=== PATIENT | male | born 1960 | race Caucasian/White ===

== ENCOUNTER 2021-06-25 18:49 | Emergency (ER) | payer MEDICAID ==
[~2021-06-25] VITALS: Ht 180.3 cm; Wt 95.5 kg
[~2021-06-25 18:49] MED LIST: HYDR-4383 PO; LEVO100T PO; OMEG10007 PO; QUET25TA PO; SIMV-45 PO
[2021-06-25 18:58] VITALS: BP 140/83
== END 2021-06-25 19:11 ==
LOC: ER 18:50
DX: S40.812A Abrasion of left upper arm, initial encounter (principal); F10.929 Alcohol use, unspecified with intoxication, unspecified; V87.7XXA Person injured in collision between other specified motor vehicles (traffic), initial encounter; Y93.89 Activity, other specified; Y92.89 Other specified places as the place of occurrence of the external cause; Y99.8 Other external cause status; Y90.9 Presence of alcohol in blood, level not specified; Z02.89 Encounter for other administrative examinations
CPT/HCPCS: 99283

== ENCOUNTER 2023-01-28 06:59 | Day surgery (SDC) | payer MEDICAID ==
[2023-01-24 16:21] LABS: BASOPHILS % (AUTO) 0.4 % (0-1); EOSINOPHILS # (AUTO) 0.1 X10'3 (0-0.9); LYMPHOCYTES % (AUTO) 22.8 % (21-51); MEAN CORPUSCULAR HEMOGLOBIN 29.6 PG (27.0-31.0); MEAN CORPUSCULAR HGB CONC 33.5 g/dL (33.0-36.5); MEAN CORPUSCULAR VOLUME 88.2 FL (78-98); MEAN PLATELET VOLUME 9.4 FL (7.4-10.4); MONOCYTES # (AUTO) 0.5 X10'3 (0-0.9); MONOCYTES % (AUTO) 12.3 % (2-12); NEUTROPHILS # (AUTO) 2.7 X10'3 (1.8-7.7); NEUTROPHILS % (AUTO) 62.5 % (42-75); PRE OP HEMATOCRIT 38.2 % (42.0-52.0); PRE OP HEMOGLOBIN 12.8 g/dL (14.0-17.9); PRE OP PLATELET COUNT 177 X10'3 (140-440); RED BLOOD COUNT 4.33 X10'6 (4.70-6.10); RED CELL DISTRIBUTION WIDTH 13.3 % (11.5-14.5)
[2023-01-24 16:30] LABS: ALBUMIN 3.9 G/DL (3.4-5.0); ALBUMIN/GLOBULIN RATIO 1.2 (1.1-1.5); ALKALINE PHOSPHATASE 55 IU/L (46-116); BLOOD UREA NITROGEN 17 MG/DL (7-18); BUN/CREATININE RATIO 21.8 (5.4-32.0); CALCIUM 10.1 MG/DL (8.5-10.1); CHLORIDE 104 MMOL/L (99-107); CREATININE 0.78 MG/DL (0.60-1.10); PRE OP ALT 20 U/L (30-65); PRE OP ANION GAP 8 (8-16); PRE OP AST 26 U/L (10-37); PRE OP BILIRUB, TOTAL 0.4 MG/DL (0.0-1.0); PRE OP GLUCOSE 138 MG/DL (70-104); PRE OP POTASSIUM 3.9 MMOL/L (3.4-5.1); PRE OP SODIUM 139 MMOL/L (135-145); TOTAL PROTEIN 7.2 G/DL (6.4-8.2); eGFR > 90 ML/MIN
[~2023-01-28] VITALS: Ht 180.3 cm; Wt 96.2 kg
[2023-01-28] VITALS (7 sets, daily range): BP systolic 121–134; BP diastolic 68–81
[~2023-01-28 06:59] MED LIST changes: +BUPIVAcaine 0.5% inj/PF 30 ML ONE; +ESCI20TA39 PO; +FENO200C22 PO; +GABA300C PO; -HYDR-4383 PO; +HYDR25TA5 PO; -LEVO100T PO; +LEVO75TA PO; -QUET25TA PO; +ROSU40TA22 PO; -SIMV-45 PO; +ceFAZolin inj. 2,000 MG in dextrose 5%-water 100 ML IV ONE; +famotidine 20mg tablet PO ONE; +ringers solution, lacted 1,000 ML IV SCH
[2023-01-28] MEDS ORDERED: meperidine/PF 25mg/ml syringe IV PRN ×3 (08:25)
[2023-01-28] MEDS ORDERED: ondansetron/PF 4mg/2ml inj IV PRN (08:25)
[2023-01-28] MEDS ORDERED: morphine 2 MG/ML inj. syringe IV PRN (08:25)
[2023-01-28] MEDS ORDERED: ringers solution, lacted 1,000 ML IV SCH (08:25)
[2023-01-28] MEDS ORDERED: proCHLORperazine 10 MG/2 ml inj IV PRN (08:25)
[2023-01-28] MEDS ORDERED: morphine 4 MG/ML inj SYRINge IV PRN (08:25)
[2023-01-28] MEDS ORDERED: fentaNYL/PF 50MCG/1 ML 2ML syringe ONE (09:37)
[2023-01-28] MEDS ORDERED: midazolam 1 mg/ML 2ml injection ONE ×2 (09:38→09:51)
[2023-01-28] MEDS ORDERED: LIDOcaine 0.5% (5mg/ml) 50ml vial ONE (09:39)
[2023-01-28] MEDS ORDERED: BUPIVAcaine 0.5% inj/PF 30 ml vial IJ ONE (10:03)
--- NOTE | 2023-01-28 10:28 | NUR ---
PATIENT DISCHARGED FROM PACU IN STABLE CONDITION AFTER WRITTEN AND VERBAL DISCHARGE INSTRUCTIONS GIVEN. PATIENT GAVE VERBAL UNDERSTANDING OF INSTRUCTIONS GIVEN. PATIENT LEFT FACILITY VIA WHEELCHAIR WITH VOLUNTEER. Addendum: 01/28/23 at 1122 by Jess Flores RN Amended: Links added.
--- NOTE | 2023-01-28 11:28 | NUR ---
PATIENT DISCHARGED FROM PACU IN STABLE CONDITION AFTER WRITTEN AND VERBAL DISCHARGE INSTRUCTIONS GIVEN. PATIENT GAVE VERBAL UNDERSTANDING OF INSTRUCTIONS GIVEN. PATIENT LEFT FACILITY VIA WHEELCHAIR WITH VOLUNTEER. Addendum: 01/28/23 at 1140 by Jess Flores RN Amended: Links added.
== END 2023-01-28 11:28 | disposition home or self-care (01) ==
LOC: PAS 06:59
PROVIDERS: ATTEND Orthopaedic Surgery Hand Surgery
DX: M72.0 Palmar fascial fibromatosis [Dupuytren] (principal); I10 Essential (primary) hypertension; E78.5 Hyperlipidemia, unspecified; F41.9 Anxiety disorder, unspecified; F32.9 Major depressive disorder, single episode, unspecified; E03.9 Hypothyroidism, unspecified; M16.12 Unilateral primary osteoarthritis, left hip; M19.011 Primary osteoarthritis, right shoulder; Z72.89 Other problems related to lifestyle; Z86.14 Personal history of Methicillin resistant Staphylococcus aureus infection; Z79.899 Other long term (current) drug therapy; Z98.890 Other specified postprocedural states
CPT/HCPCS: 26123; 36415; 80053; 82948; 85025; 93005; A6222; J0690; J2250; J3010; J3490; J7030; J7060; J7120; S0020; Z7506; Z7512; A4215; A4618; A6449; A7000

== ENCOUNTER 2023-05-14 08:26 | Inpatient (IN) | payer MEDICAID ==
[2023-05-08 14:49] LABS: BASOPHILS % (AUTO) 0.5 % (0-1); EOSINOPHILS # (AUTO) 0.1 X10'3 (0-0.9); EOSINOPHILS % (AUTO) 1.7 % (0-6); LYMPHOCYTES # (AUTO) 1.6 X10'3 (1.1-4.8); LYMPHOCYTES % (AUTO) 26.2 % (21-51); MEAN CORPUSCULAR HEMOGLOBIN 29.1 PG (27.0-31.0); MEAN CORPUSCULAR HGB CONC 32.8 g/dL (33.0-36.5); MEAN CORPUSCULAR VOLUME 88.7 FL (78-98); MEAN PLATELET VOLUME 9.9 FL (7.4-10.4); MONOCYTES # (AUTO) 0.5 X10'3 (0-0.9); MONOCYTES % (AUTO) 7.9 % (2-12); NEUTROPHILS % (AUTO) 63.7 % (42-75); PRE OP HEMATOCRIT 41.2 % (42.0-52.0); PRE OP HEMOGLOBIN 13.5 g/dL (14.0-17.9); PRE OP PLATELET COUNT 207 X10'3 (140-440); RED BLOOD COUNT 4.64 X10'6 (4.70-6.10); RED CELL DISTRIBUTION WIDTH 12.9 % (11.5-14.5)
[2023-05-08 15:10] LABS: ALBUMIN 4.2 G/DL (3.4-5.0); ALBUMIN/GLOBULIN RATIO 1.3 (1.1-1.5); ALKALINE PHOSPHATASE 45 IU/L (46-116); BLOOD UREA NITROGEN 18 MG/DL (7-18); BUN/CREATININE RATIO 19.8 (10.0-20.0); CALCIUM 9.7 MG/DL (8.5-10.1); CHLORIDE 104 MMOL/L (99-107); CREATININE 0.91 MG/DL (0.60-1.10); PRE OP ALT 22 U/L (30-65); PRE OP ANION GAP 12 (8-16); PRE OP AST 17 U/L (10-37); PRE OP BILIRUB, TOTAL 0.3 MG/DL (0.0-1.0); PRE OP GLUCOSE 111 MG/DL (70-104); PRE OP POTASSIUM 3.9 MMOL/L (3.4-5.1); PRE OP SODIUM 144 MMOL/L (135-145); TOTAL CARBON DIOXIDE 27.7 MMOL/L (24-32); TOTAL PROTEIN 7.4 G/DL (6.4-8.2); eGFR 84 ML/MIN
[~2023-05-14] VITALS: Ht 180.3 cm; Wt 94.4 kg
[2023-05-14] VITALS (19 sets, daily range): BP systolic 86–130; BP diastolic 54–80
[~2023-05-14 08:26] MED LIST changes: -BUPIVAcaine 0.5% inj/PF 30 ML ONE; +HYDROcodone/acetaminophen 10/325mg tab PO PRN; +HYDROmorphone 1 mg/ml syringe IV PRN; +HYDROmorphone inj. 0.5 MG/0.5 ML DISP.SYRIN IV PRN; +ROPIVAcaine 0.5% (5mg/ml) 30ml vial ONE; +TURMERIC PO; +acetaminophen 325mg tablet PO ONE; +acetaminophen 325mg tablet PO PRN; +bisacodyl 10mg suppository rectal RC PRN; -ceFAZolin inj. 2,000 MG in dextrose 5%-water 100 ML IV ONE; +cefazolin 2gm/D5W 100mL 100 ML IV ONE; +celeCOXIB 100mg capsule PO ONE; +cloNIDine hcl/PF 100mcg/ml inj ONE; +diphenhydrAMINE 25mg capsule PO PRN; +epiNEPHrine 1 mg/ml inj ONE; +gabapentin 300mg capsule PO ONE; +magnesium hydroxide 30ml (MOM) UD suspension PO PRN; +metoclopramide 5 mg/ml inj IV ONE; +naloxone 0.4 mg/ml inj IV PRN; +ondansetron/PF 4mg/2ml inj IV PRN; +oxyCODONE SR 10mg (sust. release) tab -2 tabs (20mg) PO ONE; +tranexamic acid inj. 1,000 MG in normal saline IV soln 100ML IV ONE; +vancomycin 1,000mg inj ONE; +vancomycin 1,500 MG in NS 300ml IV soln IV ONE
--- NOTE | 2023-05-14 14:35 | NUR ---
PT DID ALL 5 SHOWERS, CSM INTACT, REVIEWED JOINT RESOURCES
[2023-05-14] MEDS ORDERED: ketorolac trometh. 30mg/ml inj. ONE (14:54)
[2023-05-14] MEDS ORDERED: morphine 2 MG/ML inj. syringe IV PRN (14:55)
[2023-05-14] MEDS ORDERED: ringers solution, lacted 1,000 ML IV SCH (14:55)
[2023-05-14] MEDS ORDERED: morphine 4 MG/ML inj SYRINge IV PRN (14:55)
[2023-05-14] MEDS ORDERED: fentaNYL/PF 50MCG/1 ML 2ML syringe IV PRN ×2 (14:55)
[2023-05-14] MEDS ORDERED: labetalol 20mg/4ml (5mg/ml) syringe IV PRN (14:55)
[2023-05-14] MEDS ORDERED: hydrALAZINE 20mg/ml inj. IV PRN (14:55)
[2023-05-14] MEDS ORDERED: ondansetron/PF 4mg/2ml inj IV PRN (14:55)
[2023-05-14] MEDS: potassium cl 20mEq in 1/2 NS 1,000 ML IV SCH ×3 (15:10→23:10)
[2023-05-14] MEDS ORDERED: tranexamic acid inj. 930 MG in normal saline 100ml IV soln 90.7 ML IV ONE ×2 (15:30→19:30)
[2023-05-14] MEDS ORDERED: MIDAZolam 1 MG/ML 5ML VIAL ONE (15:54)
[2023-05-14] MEDS ORDERED: fentaNYL/PF 50MCG/1 ML 2ML syringe ONE (15:54)
[2023-05-14] MEDS ORDERED: midazolam 1 mg/ML 2ml injection ONE (17:12)
--- NOTE | 2023-05-14 17:50 | NUR ---
Received from OR via HOSPITAL BED, accompanied by Anesthesiologist DR DOOLEY and report given by Anesthesiologist. PT AWAKE AND ANSWERING QUESTIONS APPROPRIATELY AND FOLLOWING COMMANDS. PT PLACED ON BEDSIDE MONITOR, VSS. PT IS YANELI WITH RATE IN 40'S, PT PRE-OPERATIVELY WAS HR 50. PT RECEIVING 10L O2 TO MASK AND TOLERATING WELL WITH O2 SAT >95%. WILL TITRATE DOWN AT PT TOLERATES. PT HAS 20G PIV TO LEFT HAND WITH LR INFUSING ORDERED. PT HAS ARIE DRSG TO LEFT HIP THAT IS CDI AND LEG IMMOBILIZER IN PLACE. PT HAS PALPABLE BILAT DORSALIS PEDIS PULSES. PT IS UNABLE TO MOVE BLE OR WIGGLE TOES AT THIS TIME AND HAS SENSATION ON DERMATOME LEVEL L3. PT DENIES PAIN AT THIS TIME. WILL CONTINUE TO ASSESS
[2023-05-14] MEDS ORDERED: VANCOMYCIN 1,500MG inj. 1,500 MG in normal saline 500ml IV soln 300 ML IV ONE (20:00)
--- NOTE | 2023-05-14 20:07 | NUR ---
PATIENT HAS MET ALL CRITERIA FOR TRANSFER TO THE ORTHO FLOOR. VSS. DRESSINGS INTACT. BED LOW, CALL LIGHT PRESENT AND 2 RAILS UP. MIKE RN PRESENT TO ACCEPT CARE OF PATIENT AND REPORT HAS BEEN CALLED. ALL QUESTIONS ANSWERED TO ACCEPTING RN.
[2023-05-14] MEDS: ascorbic acid 500mg tablet PO SCH (20:31)
[2023-05-14] MEDS: HYDROcodone/acetaminophen 10/325mg tab PO PRN (20:31)
[2023-05-14] MEDS: gabapentin 300mg capsule PO SCH (20:31)
[2023-05-14] MEDS ORDERED: sennosides 8.6mg tablet PO SCH (21:00)
[2023-05-15] VITALS: BP 119/64
[2023-05-15] MEDS: HYDROcodone/acetaminophen 10/325mg tab PO PRN ×3 (00:34→10:21)
[2023-05-15 02:00] VITALS: BP 110/67
[2023-05-15 06:00] VITALS: BP 103/60
[2023-05-15 06:21] LABS: BASOPHILS % (AUTO) 0.3 % (0-1); EOSINOPHILS # (AUTO) 0.2 X10'3 (0-0.9); EOSINOPHILS % (AUTO) 2.4 % (0-6); HEMATOCRIT 34.3 % (42.0-52.0); HEMOGLOBIN 11.2 g/dl (14.0-17.9); LYMPHOCYTES # (AUTO) 1.2 X10'3 (1.1-4.8); LYMPHOCYTES % (AUTO) 17.5 % (21-51); MEAN CORPUSCULAR HGB CONC 32.5 g/dL (33.0-36.5); MEAN CORPUSCULAR VOLUME 89.1 FL (78-98); MEAN PLATELET VOLUME 9.7 FL (7.4-10.4); MONOCYTES # (AUTO) 0.6 X10'3 (0-0.9); MONOCYTES % (AUTO) 8.8 % (2-12); NEUTROPHILS # (AUTO) 4.7 X10'3 (1.8-7.7); PLATELET COUNT 151 X10'3 (140-440); RED BLOOD COUNT 3.85 X10'6 (4.70-6.10); RED CELL DISTRIBUTION WIDTH 13.2 % (11.5-14.5); WHITE BLOOD COUNT 6.6 X10'3 (4.5-11.0)
[2023-05-15 06:24] LABS: ANION GAP 6 (8-16); CHLORIDE 106 MMOL/L (99-107); POTASSIUM 4.3 MMOL/L (3.5-5.1); SODIUM 141 MMOL/L (135-145); TOTAL CARBON DIOXIDE 29.3 MMOL/L (24-32)
--- NOTE | 2023-05-15 06:25 | NUR ---
Problems reprioritized. Patient report given, questions answered & plan of care reviewed with CAS JONES.
--- NOTE | 2023-05-15 06:48 | NUR ---
Patient in room ORTHO 4014. I have received report from ROBERT Wood and had the opportunity to ask questions and assume patient care.
[2023-05-15] MEDS: potassium cl 20mEq in 1/2 NS 1,000 ML IV SCH (07:10)
[2023-05-15] MEDS ORDERED: HYDROchlorothiazide 25mg tablet PO SCH (08:00)
[2023-05-15] MEDS ORDERED: ESCITALOPRAM OXALATE 5 MG TABLET PO SCH (08:00)
[2023-05-15] MEDS ORDERED: atorvastatin 20mg tablet PO SCH (08:00)
[2023-05-15] MEDS ORDERED: multivitamins, therapeutics tablet PO SCH (08:00)
[2023-05-15] MEDS ORDERED: fenofibrate 48mg tablet PO SCH (08:00)
[2023-05-15] MEDS ORDERED: levoTHYROXINE 75mcg tablet PO SCH (08:00)
[2023-05-15] MEDS ORDERED: aspirin 325mg tablet PO SCH (08:30)
--- NOTE | 2023-05-15 08:53 | NUR ---
Joint surgery consult: Pt s/p L hip surgery this admit per EMR. Pt seen by SHERRY for written/verbal high protein diet ed w/ RD contact information provided. SHERRY encouraged pt to contact dietitian's office if further nutrition questions/concerns. Addendum: 05/15/23 at [address] Amended: Links added.
[2023-05-15] MEDS: ascorbic acid 500mg tablet PO SCH (09:02)
[2023-05-15] MEDS: gabapentin 300mg capsule PO SCH ×2 (09:03→14:26)
[2023-05-15 10:00] VITALS: BP 108/59
--- NOTE | 2023-05-15 15:40 | NUR ---
Patient is discharged with instructions verbalizing understanding of instructions, in wheelchair accompanied by nursing staff and spouse going home via private vehicle. All lines and tubes including PIV with cannula intact have been removed. Education has been provided at bedside and all questions have been answered. Patient is stable and appropriate for discharge.
[2023-05-15] MEDS ORDERED: celeCOXIB 100mg capsule PO SCH (20:00)
== END 2023-05-15 14:47 | disposition home or self-care (01) | DRG 324 ==
LOC: PAS IN 08:26 → ORTHO 4S 19:50
PROVIDERS: ADMIT Orthopaedic Surgery; ATTEND Orthopaedic Surgery
PROC: 0SRB06Z Replacement of Left Hip Joint with Oxidized Zirconium on Polyethylene Synthetic Substitute, Open Approach (ICD-10-PCS; principal; 2023-05-15)
DX: M16.12 Unilateral primary osteoarthritis, left hip (principal); Z79.82 Long term (current) use of aspirin; Z79.899 Other long term (current) drug therapy
CPT/HCPCS: 36415; 72170; 80051; 80053; 82948; 84443; 85025; 86885; 86900; 86901; 87081; 97110; 97116; 97161; 97530; A7000; C1776; G0378; J0171; J0690; J0735; J1170; J1885; J2250; J2310; J2405; J2765; J2795; J3010; J3370; J3480; J3490; J7040; J7060; J7120; Q0163

== ENCOUNTER 2024-05-05 07:33 | Emergency (ER) | payer MEDICAID ==
[~2024-05-05] VITALS: Ht 180.3 cm; Wt 84.0 kg
[~2024-05-05 07:33] MED LIST changes: -HYDROcodone/acetaminophen 10/325mg tab PO PRN; -HYDROmorphone 1 mg/ml syringe IV PRN; -HYDROmorphone inj. 0.5 MG/0.5 ML DISP.SYRIN IV PRN; -ROPIVAcaine 0.5% (5mg/ml) 30ml vial ONE; -acetaminophen 325mg tablet PO ONE; -acetaminophen 325mg tablet PO PRN; -bisacodyl 10mg suppository rectal RC PRN; -cefazolin 2gm/D5W 100mL 100 ML IV ONE; -celeCOXIB 100mg capsule PO ONE; -cloNIDine hcl/PF 100mcg/ml inj ONE; -diphenhydrAMINE 25mg capsule PO PRN; -epiNEPHrine 1 mg/ml inj ONE; -famotidine 20mg tablet PO ONE; -gabapentin 300mg capsule PO ONE; -magnesium hydroxide 30ml (MOM) UD suspension PO PRN; -metoclopramide 5 mg/ml inj IV ONE; -naloxone 0.4 mg/ml inj IV PRN; -ondansetron/PF 4mg/2ml inj IV PRN; -oxyCODONE SR 10mg (sust. release) tab -2 tabs (20mg) PO ONE; -ringers solution, lacted 1,000 ML IV SCH; -tranexamic acid inj. 1,000 MG in normal saline IV soln 100ML IV ONE; -vancomycin 1,000mg inj ONE; -vancomycin 1,500 MG in NS 300ml IV soln IV ONE
[2024-05-05 07:47] VITALS: BP 136/79; PULSE 77; TEMP 97.3; O2SAT 97
[2024-05-05 07:53] VITALS: RESP 14
[2024-05-05] MEDS ORDERED: SULF1TAB45 PO (07:58)
[2024-05-05] MEDS: bacitracin 15gm ointment TP ONE (08:09)
[2024-05-05] MEDS: TETanus/Pertussis (Acell)/Diphther VAC/PF (Tdap-Adult) 0.5ml syringe IMVAC ONE (08:10)
== END 2024-05-05 08:18 | disposition home or self-care (01) ==
LOC: ER 07:33
DX: L02.415 Cutaneous abscess of right lower limb (principal); E03.9 Hypothyroidism, unspecified; E78.00 Pure hypercholesterolemia, unspecified; Z72.89 Other problems related to lifestyle; Z79.899 Other long term (current) drug therapy; Z86.14 Personal history of Methicillin resistant Staphylococcus aureus infection; Z23 Encounter for immunization
CPT/HCPCS: 90471; 90715; 99283; A6258